=== PATIENT | female | born 1960 | race Caucasian/White ===

== ENCOUNTER 2021-10-08 12:42 | Emergency (ER) | payer MEDICAID, SELFPAY ==
[2021-10-08 13:11] VITALS: BP 117/87; PULSE 81; RESP 16; TEMP 36.3; O2SAT 92; BMI 32.6
--- NOTE | 2021-10-08 15:09 | CRLHL7_ITS ---
For Patients: As a result of the Cures Act, medical imaging exams and procedure reports are released immediately into your electronic medical record. You may view this report before your referring provider. If you have questions, please contact your health care provider. INDICATION: Knee pain. TECHNIQUE: Left knee 3 views. COMPARISON: None. FINDINGS: Bones: Alignment is normal. No fractures or bone lesions. Joint spaces: Mild degenerative changes in the form of osteophytes projecting from the tibial spine. Soft tissues: Unremarkable. IMPRESSION: No findings to explain pain. Dictated by Trevon Son MD @ 10/08/2021 4:28:56 PM (Electronically Signed)
[2021-10-08] MEDS: KETOROLAC 30 MG/ML inj IM (15:26)
[2021-10-08 15:42] LABS: Basophils Absolute Auto 0.03 K/uL (0.00-0.30); Basophils Percent Auto 0.5 % (0.0-3.0); Eosinophils Absolute Auto 0.22 K/uL (0.00-0.50); Eosinophils Percent Auto 3.3 % (0.0-7.0); Hemoglobin* 15.9 gm/dL (12.0-16.0); Immature Granulocytes Abs Auto 0.01 K/uL (0.00-0.30); Lymphocytes Absolute Auto 2.49 K/uL (0.90-2.90); Lymphocytes Percent Auto 37.6 % (20-44); Mean Corpuscular HGB Conc 33 gm/dL (32-36); Mean Corpuscular Hemoglobin 30 pg (26-34); Mean Corpuscular Volume 89 fL (80-100); Monocytes Percent Auto 5.3 % (0.0-11.0); Neutrophils Absolute Auto 3.53 K/uL (1.7-7.0); Neutrophils Percent Auto 53.1 % (42.0-72.0); Platelet Count* 282 K/uL (140-440); RDW Coefficient of Variation % 12.2 % (11.5-15.5); Red Blood Count 5.39 m/uL (4.00-5.20); White Blood Count* 6.63 K/uL (4.50-11.00)
[2021-10-08 15:43] LABS: Slide Review Reflex No
[2021-10-08 15:58] LABS: Chloride* 109 mmol/L (96-114); Sodium* 142 mmol/L (135-149)
[2021-10-08 16:01] LABS: Creatinine* 0.9 mg/dL (0.5-1.5); Est. Creatinine Clearance* 51.02; Estimated Glomerular Filt Rate 73 ml/min
[2021-10-08 16:02] LABS: Blood Urea Nitrogen* 21 mg/dL (7-30); Calcium* 9.5 mg/dL (8.4-10.6); Carbon Dioxide* 25 mmol/L (20-32); Glucose* 93 mg/dL (60-115)
--- NOTE | 2021-10-08 16:17 | ED_ITS ---
HPI - Extremity Injury (Lower) General Chief Complaint: Extremity Pain/Injury, Lower Stated Complaint: pain on left knees Time Seen by Provider: 10/08/21 14:58 History of Present Illness HPI Narrative: 61-year-old female patient presents emergency department with complaints of left knee pain. Patient reports in August, she [place] where [place] knocked her sideways causing immediate pain, swelling, and decreased range of motion. She reports she has conservative therapy with RICE with some improvement. Then, over the weekend she attended a wedding where she was dancing and had subsequent increase in pain. She denies new injury or trauma. She states since that time, she has had severe pain and burning. She denies numbness, tingling, or weakness. She reports after the wedding, she felt the knee may ?give way?. She has taken Tylenol in the a.m. for pain control with minimal improvement in symptoms. She continues with compression and ice with minimal assistance with discomfort. She requests MRI for further evaluation of her concern. She has not yet had x-ray or other evaluation of this concern. See nursing notes for additional details. Related Data Allergies Allergy/AdvReac Type Severity Reaction Status Date / Time doxycycline AdvReac Severe Burned Verified 10/08/21 15:29 Esophagus Review of Systems Const: Denies: fever or chills Cardio: Denies: chest pain, palpitations or shortness of breath with exertion Resp: Denies: shortness of breath GI: Denies: nausea or vomiting Musculo: Reports: joint pain, limited range of motion and joint swelling Neuro: Denies: numbness in extremities, weakness in extremities or lack of coordination Exam Const: Vital Signs, click to edit/add: Vital Signs - 24 hr 10/08/21 13:11 Temperature 97.3 F L Pulse Rate [Pulse Oximeter] 81 Respiratory Rate 16 Blood Pressure [Ri ght Upper Arm] 117/87 Pulse Oximetry 92 Oxygen Delivery Me thod Room Air Documenting provider has reviewed patient's vital signs: yes Common normals : no apparent distress, oriented x3, healthy appearing, alert and well nourished General appearance: not comfortable and not in distress Nutritional appearance: obese Orientation/consciousness: Yes awake, Yes oriented to person, Yes oriented to place and Yes oriented to time HENMT: Common normals: normocephalic and head/scalp atraumatic Head and scalp: normocephalic and atraumatic Resp: Common normals: normal respiratory effort, no retractions, no use of accessory muscles and clear to auscultation bilaterally Effort & inspection: able to speak in complete sentences Auscultation: clear to auscultation bilaterally Cardio: Common normals: regular rate, regular rhythm, S1 normal heart sound, S2 normal heart sound, no gallops, no clicks and no murmurs Rate: regular rate Rhythm: regular rhythm Heart sounds: S1 normal and S2 normal GI: Common normals: Normal to inspection, nondistended, normoactive bowel sounds present, soft to palpation and non-tender Palpation: soft Back & Pelvis: Pelvis: no pain with anterior-posterior compression and no pain with lateral compression Extremity: Common normals: no clubbing, cyanosis or edema Left lower extremity: knee joint Left knee: inspection (Slightly enlarged compared to right), palpation (Warm to palpation with tenderness noted medially and inferior), ROM (Limitation secondary to pain) and neurovascular exam (No motor or sensory deficits noted) Neuro: Common normals: oriented x3, moves all extremities, no focal motor deficits and no sensory deficits noted Sensorium/orientation: awake, alert, oriented to person, oriented to place and oriented to time Psych: Common normals: mental status grossly normal, thought process normal, cooperative and affect normal Thought process: normal thought process Skin: Common normals: no rashes or lesions noted General skin exam: no rashes or lesions noted Course Course Hospital Course: Jie presented for knee pain. She was sent for imaging as well as laboratory studies for evaluation her discomfort. We discussed acute MRI was inappropriate for knee pain at present, but would definitely consider outpatient follow-up with pre authorization for further evaluation of discomfort it persists. The patient was given anti-inflammatories to assist with pain and discomfort. Vital Signs Vital signs: Initial Vital Signs Temperature 97.3 F L 10/08/21 13:11 Temperature Source Temporal Artery Scan 10/08/21 13:11 Pulse Rate 81 10/08/21 13:11 Pulse Rhythm 10/08/21 13:11 Respiratory Rate 16 10/08/21 13:11 Blood Pressure 117/87 10/08/21 13:11 Blood Pressure Mean 97 10/08/21 13:11 Pulse Oximetry 92 10/08/21 13:11 Oxygen Delivery Method 10/08/21 13:11 Vital Signs Temperature 97.3 F L 10/08/21 13:11 Pulse Rate 81 10/08/21 13:11 Respiratory Rate 16 10/08/21 13:11 Blood Pressure 117/87 10/08/21 13:11 Pulse Oximetry 92 10/08/21 13:11 Oxygen Delivery Method 10/08/21 13:11 Temperature 97.3 F L 10/08/21 13:11 Pulse Rate 81 10/08/21 13:11 Respiratory Rate 16 10/08/21 13:11 Blood Pressure 117/87 10/08/21 13:11 Pulse Oximetry 92 10/08/21 13:11 Oxygen Delivery Method 10/08/21 13:11 MDM - Extremity Injury (Lower) Lab Data Attestation: I reviewed the patient's lab results. Labs: Lab Results 10/08/21 10/08/21 10/08/21 Range/Units 15:25 15:25 15:25 WBC 6.63 (4.50-11.00) K/uL RBC 5.39 H (4.00-5.20) m/uL Hgb 15.9 (12.0-16.0) gm/dL Hct 48.0 (33.0-51.0) % MCV 89 (80-100) fL MCH 30 (26-34) pg MCHC 33 (32-36) gm/dL RDW Coeff of Rick 12.2 (11.5-15.5) % Plt Count 282 (140-440) K/uL Neut % (Auto) 53.1 (42.0-72.0) % Lymph % (Auto) 37.6 (20-44) % [place] % (Auto) 5.3 (0.0-11.0) % Eos % (Auto) 3.3 (0.0-7.0) % Baso % (Auto) 0.5 (0.0-3.0) % Neut # (Auto) 3.53 (1.7-7.0) K/uL Lymph # (Auto) 2.49 (0.90-2.90) K/uL [place] # (Auto) 0.40 (0.00-0.90) K/UL Eos # (Auto) 0.22 (0.00-0.50) K/uL Baso # (Auto) 0.03 (0.00-0.30) K/uL Abs Immat Gran (auto) 0.01 (0.00-0.30) K/uL Sodium 142 (135-149) mmol/L Potassium 4.0 (3.6-5.1) mmol/L Chloride 109 (96-114) mmol/L Carbon Dioxide 25 (20-32) mmol/L BUN 21 (7-30) mg/dL Creatinine 0.9 (0.5-1.5) mg/dL Estimated Creat Clear 51.02 Estimated GFR 73 ml/min Glucose 93 (60-115) mg/dL Calcium 9.5 (8.4-10.6) mg/dL C-Reactive Protein < 0.5 L (0.5-1.0) mg/dL C-React Prot High Sens Cancelled Imaging Data XR knee: Attestation: I have reviewed the pertinent imaging results. Radiologist's impression: FINDINGS: Bones: Alignment is normal. No fractures or bone lesions.? Joint spaces: Mild degenerative changes in the form of osteophytes projecting from the tibial spine. Soft tissues: Unremarkable.? IMPRESSION: No findings to explain pain. Discharge Plan Discharge Clinical Impression: Acute knee pain Patient Disposition: Home, Self-Care Condition: Stable Instructions: Knee Pain (ED) Additional Instructions: Thank you for choosing [facility] for your care today. Take NSAID of choice - Advil, Aleve, Motrin, or substitute - scheduled per package directions with food for 72hrs. Take Tylenol per package direction to assist with control of pain. Use RICE - rest, ice, compression, and elevation - as needed for symptom control. I recommend following up with your primary physician in 1-2wks for consideration of additional imaging if a significant improvement of symptoms is not noted. Refrain from routine activity as tolerated. You may consider topical medications including capsaicin or lidocaine patches to assist with symptom control. If new or worsening symptoms develop or you have any concerns in the meantime, please call your primary care clinic or return to the ER for re-evaluation. Activity Level: Activity as Tolerated and Weight Bearing as Tolerated Discharge Diet: Heart Healthy (2 gm sodium, low fat) Follow Up/Referrals: Provider,Not a Local [Primary Care Provider] - Stand Alone Forms: [employer] Info Instructions
[2021-10-08 16:25] LABS: C Reactive Protein* < 0.5 mg/dL (0.5-1.0)
== END 2021-10-08 18:07 | disposition home or self-care (01) ==
PROVIDERS: Emergency Provider Family Medicine
DX: M25.562 Pain in left knee (principal)
CPT/HCPCS: 36415; 73562; 80048; 85025; 86140; 86141; 96372; 99283; J1885

== ENCOUNTER 2023-11-22 22:37 | Emergency (ER) | payer OTHER, SELFPAY ==
[2023-11-22 22:48] VITALS: BP 148/136; PULSE 106; TEMP 37.3; O2SAT 94; BMI 32.6
--- NOTE | 2023-11-22 23:08 | ED.GENADULT ---
HPI - General Adult General Date Seen: 11/22/23 <Halina Mendenhall MD - Last Filed: 11/25/23 09:28> Chief complaint: Shortness of Breath/Dyspnea <Halina Mendenhlal MD - Last Filed: 11/25/23 09:28> Stated complaint: difficulty breathing <Halina Mendenhall MD - Last Filed: 11/25/23 09:28> Time Seen by Provider: 11/22/23 22:54 <Halina Mendenhall MD - Last Filed: 11/25/23 09:28> Source: patient, RN notes reviewed and old records reviewed <Halina Mendenhall MD - Last Filed: 11/25/23 09:28> Mode of arrival: ambulatory <Halina Mendenhall MD - Last Filed: 11/25/23 09:28> Limitations: no limitations <Halina Mendenhall MD - Last Filed: 11/25/23 09:28> History of Present Illness HPI narrative: Patient is a 63-year-old woman who comes in saying that she has been having problems for a while with difficulty breathing, is being treated for asthma and allergies at [facility]. She has an albuterol inhaler, the past couple of days she has been feeling more short of breath than used her inhaler 8 times today at work. She works as a [employer]. She does have new pain between her shoulder blades tonight. She denies fever, cough, unusual leg pain or swelling. She says she has been having trouble since last January with sinus issues, and they have been finding just more and more going on, diagnosed with asthma and allergies, started on inhalers, she was diagnosed with polycythemia vera as well. She was living with her daughter who had a cat, it turns out that she is allergic to cats so she is no longer around the cat but it does not seem to help significantly. No personal history or family history of DVT or PE. She does not take oral contraceptives. She has had problems with reflux symptoms and those are unchanged. She does not smoke. <Halina Mendenhall MD - Last Filed: 11/25/23 09:28> Related Data Home medications: Home Medications ?Medication ?Instructions ?Recorded ?Confirmed albuterol sulfate 90 mcg/actuation 1 - 2 puff inhalation QID PRN 11/22/23 11/22/23 aerosol inhaler (Ventolin HFA) wheezing mometasone-formoterol HFA 200 2 puff inhalation BID 11/22/23 11/22/23 mcg-5 mcg/actuation aerosol inhaler (Dulera) <Halina Mendenhall MD - Last Filed: 11/25/23 09:28> Allergies/adverse reactions: Allergies Allergy/AdvReac Type Severity Reaction Status Date / Time doxycycline AdvReac Severe Burned Verified 11/22/23 22:46 Esophagus <Halina Mendenhall MD - Last Filed: 11/25/23 09:28> Review of Systems Status of ROS: Reports: 10 or more systems reviewed and unremarkable except as noted in History and below <Halina Mendenhall MD - Last Filed: 11/25/23 09:28> [facility] Social History: Social History Smoking Status: Former smoker Do you use any of these nicotine containing products: None Second hand tobacco smoke exposure: Yes How often do you have a drink containing alcohol: never How often do you have six or more drinks on one occasion: Never AUDIT-C Alcohol total score: 0 Non-prescribed substance use: denies use and marijuana (any form) service: No <Halina Mendenhall MD - Last Filed: 11/25/23 09:28> Exam Narrative: Exam Narrative: Vital signs as noted above. In general, an alert, nontoxic woman. Speaks in full sentences. Head: Normocephalic, atraumatic. Eyes: Pupils are equal reactive. Extraocular movements are full. Conjunctivae are normal. ENT: Mucous membranes are moist. Throat is normal. Neck: Supple without lymphadenopathy. Heart: Mildly tachycardic and regular, no murmur. Lungs: Scattered bilateral expiratory wheezes. Breath sounds seem a little decreased on the left relative to the right. No crackles. Abdomen: Soft and nontender. No organomegaly. Extremities: Well perfused. No edema. No calf tenderness. Pulses intact. Neurologic: Patient is alert and oriented to person and place. Speech is fluent. Face is symmetric. Moves all extremities equally. Affect: Normal. Skin: Warm and dry. Well perfused. <Halina Mendenhall MD - Last Filed: 11/25/23 09:28> Const: Vital Signs, click to edit/add: Vital Signs - 24 hr 11/22/23 22:48 11/22/23 23:32 11/23/23 00:59 Temperature 99.1 F 98.6 F Pulse Rate [Pulse Oximeter] 106 H Respiratory Rate Blood Pressure [Ri ght Upper Arm] 148/136 H Pulse Oximetry 94 100 Oxygen Delivery Me thod Room Air 11/23/23 01:20 Temperature Pulse Rate [Pulse Oximeter] 86 Respiratory Rate 18 Blood Pressure [Ri ght Upper Arm] 130/70 Pulse Oximetry 96 Oxygen Delivery Me thod Room Air <Halina Mendenhall MD - Last Filed: 11/25/23 09:28> Vital Signs, click to edit/add: Vital Signs - 24 hr 11/22/23 22:48 11/22/23 23:32 11/23/23 00:59 Temperature 99.1 F 98.6 F Pulse Rate [Pulse Oximeter] 106 H Respiratory Rate Blood Pressure [Ri ght Upper Arm] 148/136 H Pulse Oximetry 94 100 Oxygen Delivery Me thod Room Air 11/23/23 01:20 Temperature Pulse Rate [Pulse Oximeter] 86 Respiratory Rate 18 Blood Pressure [Ri ght Upper Arm] 130/70 Pulse Oximetry 96 Oxygen Delivery Me thod Room Air <Yusuf Dent DO - Last Filed: 11/23/23 01:34> Documenting provider has reviewed patient's vital signs: yes <Halina Mendenhall MD - Last Filed: 11/25/23 09:28> Course Course ED Course: Patient presents with an exacerbation of difficulty breathing in the setting of recently diagnosed asthma. Other diagnostic considerations would be congestive heart failure, pulmonary embolism, pneumonia, pneumothorax among others. She completed a course of prednisone a week ago and did feel better on the prednisone. She clearly has evidence of bronchospasm here, has new periscapular pain. She is mildly tachycardic, O2 sats 94%. Will obtain a D-dimer, if positive would recommend chest CT if negative I think a chest x-ray would suffice. I am going to give her prednisone as well as a DuoNeb and trying get her wheezing under better control for her. Other lab work pending. EKG showed a sinus rhythm, ventricular rate of 97 beats per minute. No ST segment changes, no S1 Q 3 T3 pattern. Unremarkable T-waves. D-dimer is negative. Other blood work unremarkable. She feels significantly better after DuoNeb, does still have a little bit of scattered wheezing. I am signing her out to the oncoming physician, observe for little bit make sure she continues to improve, if she needs additional neb treatment here this can be done as well. Discharge home on prednisone with primary care follow-up if not improving over the next couple of days. Return any time for acute worsening. <Halina Mendenhall MD - Last Filed: 11/25/23 09:28> Vital Signs Vital signs: Initial Vital Signs Temperature 99.1 F 11/22/23 22:48 Temperature Source Temporal Artery Scan 11/22/23 22:48 Pulse Rate 106 H 11/22/23 22:48 Blood Pressure 148/136 H 11/22/23 22:48 Blood Pressure Mean 140 H 11/22/23 22:48 Blood Pressure Position Sitting 11/22/23 22:48 Pulse Oximetry 94 11/22/23 22:48 Oxygen Delivery Method Room Air 11/22/23 22:48 Vital Signs Temperature 99.1 F 11/22/23 22:48 Pulse Rate 106 H 11/22/23 22:48 Blood Pressure 148/136 H 11/22/23 22:48 Pulse Oximetry 94 11/22/23 22:48 Oxygen Delivery Method Room Air 11/22/23 22:48 Temperature 98.6 F 11/23/23 00:59 Pulse Rate 86 11/23/23 01:20 Respiratory Rate 18 11/23/23 01:20 Blood Pressure 130/70 11/23/23 01:20 Pulse Oximetry 96 11/23/23 01:20 Oxygen Delivery Method Room Air 11/23/23 01:20 <Halina Mendenhall MD - Last Filed: 11/25/23 09:28> Initial Vital Signs Temperature 99.1 F 11/22/23 22:48 Temperature Source Temporal Artery Scan 11/22/23 22:48 Pulse Rate 106 H 11/22/23 22:48 Blood Pressure 148/136 H 11/22/23 22:48 Blood Pressure Mean 140 H 11/22/23 22:48 Blood Pressure Position Sitting 11/22/23 22:48 Pulse Oximetry 94 11/22/23 22:48 Oxygen Delivery Method Room Air 11/22/23 22:48 Vital Signs Temperature 99.1 F 11/22/23 22:48 Pulse Rate 106 H 11/22/23 22:48 Blood Pressure 148/136 H 11/22/23 22:48 Pulse Oximetry 94 11/22/23 22:48 Oxygen Delivery Method Room Air 11/22/23 22:48 Temperature 98.6 F 11/23/23 00:59 Pulse Rate 86 11/23/23 01:20 Respiratory Rate 18 11/23/23 01:20 Blood Pressure 130/70 11/23/23 01:20 Pulse Oximetry 96 11/23/23 01:20 Oxygen Delivery Method Room Air 11/23/23 01:20 <Yusuf Dent DO - Last Filed: 11/23/23 01:34> Medications Administered Medications: Discontinued Medications Generic Name Dose Route Start Last Admin Trade Name Freq PRN Reason Stop Dose Admin Albuterol/Ipratropium 1 [facility] 11/22/23 23:06 11/22/23 23:30 Iprat-Albut 0.5-2.5 Mg/3 Ml [facility] 11/22/23 23:07 1 neb ONCE ONE Administration Prednisone 60 mg 11/22/23 23:06 11/22/23 23:31 Prednisone 20 Mg Tablet PO 11/22/23 23:07 60 mg ONCE ONE Administration <Halina Mendenhall MD - Last Filed: 11/25/23 09:28> Discontinued Medications Generic Name Dose Route Start Last Admin Trade Name Freq PRN Reason Stop Dose Admin Albuterol/Ipratropium 1 [facility] 11/22/23 23:06 11/22/23 23:30 Iprat-Albut 0.5-2.5 Mg/3 Ml [facility] 11/22/23 23:07 1 neb ONCE ONE Administration Prednisone 60 mg 11/22/23 23:06 11/22/23 23:31 Prednisone 20 Mg Tablet PO 11/22/23 23:07 60 mg ONCE ONE Administration <Yusuf Dent DO - Last Filed: 11/23/23 01:34> Medical Decision Making MDM Narrative Medical decision making narrative: Patient signed out to me pending chest x-ray. I reviewed the chest x-ray myself and see no abnormalities. There has been a delay of the radiologist imaging reads and patient would like to be discharged. Considering she is doing well and lungs sound clear I am comfortable discharging her and will inform if any abnormalities are seen by the radiologist. <Yusuf Dent, DO - Last Filed: 11/23/23 01:34> Lab Data Labs: Lab Results 11/22/23 Range/Units 23:25 WBC 8.54 (4.50-11.00) K/uL RBC 4.81 (4.00-5.20) m/uL Hgb 14.5 (12.0-16.0) gm/dL Hct 43.6 (33.0-51.0) % MCV 91 (80-100) fL MCH 30 (26-34) pg MCHC 33 (32-36) gm/dL RDW Coeff of Rick 12.3 (11.5-15.5) % Plt Count 263 (140-440) K/uL Neut % (Auto) 55.7 (42.0-72.0) % Lymph % (Auto) 32.6 (20-44) % [place] % (Auto) 4.7 (0.0-11.0) % Eos % (Auto) 5.7 (0.0-7.0) % Baso % (Auto) 0.5 (0.0-3.0) % Neut # (Auto) 4.76 (1.7-7.0) K/uL Lymph # (Auto) 2.78 (0.90-2.90) K/uL [place] # (Auto) 0.40 (0.00-0.90) K/UL Eos # (Auto) 0.49 (0.00-0.50) K/uL Baso # (Auto) 0.04 (0.00-0.30) K/uL Abs Immat Gran (auto) 0.07 (0.00-0.30) K/uL Imm/Tot Granulo (auto) 0.8 % D-Dimer Quant (PE/DVT) 0.48 (0.00-0.50) ug/ml VBG pH 7.394 (7.32-7.43) VBG pCO2 38 L (40-50) mmHG VBG pO2 38.3 (25-47) mmHG VBG HCO3 23 (21-28) mmol/L Sodium 142 (135-149) mmol/L Potassium 3.6 (3.6-5.1) mmol/L Chloride 110 (96-114) mmol/L Carbon Dioxide 21 (20-32) mmol/L Anion Gap 11 (7-15) mEq/L BUN 17 (7-30) mg/dL Creatinine 1.0 (0.5-1.5) mg/dL Estimated Creat Clear 49.72 Estimated GFR 63 ml/min Glucose 118 H (60-115) mg/dL Calcium 9.7 (8.4-10.6) mg/dL NT-Pro-B Natriuret Pep 95 pg/mL SARS-CoV-2 (PCR) Negative SARS-CoV-2 (Negative) Influenza Type A (PCR) Negative PCR FLU A (Negative) Influenza Type B (PCR) Negative PCR FLU B (Negative) RSV (PCR) Negative PCR RSV (Negative) <Halina Mendenhall MD - Last Filed: 11/25/23 09:28> Lab Results 11/22/23 Range/Units 23:25 WBC 8.54 (4.50-11.00) K/uL RBC 4.81 (4.00-5.20) m/uL Hgb 14.5 (12.0-16.0) gm/dL Hct 43.6 (33.0-51.0) % MCV 91 (80-100) fL MCH 30 (26-34) pg MCHC 33 (32-36) gm/dL RDW Coeff of Rick 12.3 (11.5-15.5) % Plt Count 263 (140-440) K/uL Neut % (Auto) 55.7 (42.0-72.0) % Lymph % (Auto) 32.6 (20-44) % [place] % (Auto) 4.7 (0.0-11.0) % Eos % (Auto) 5.7 (0.0-7.0) % Baso % (Auto) 0.5 (0.0-3.0) % Neut # (Auto) 4.76 (1.7-7.0) K/uL Lymph # (Auto) 2.78 (0.90-2.90) K/uL [place] # (Auto) 0.40 (0.00-0.90) K/UL Eos # (Auto) 0.49 (0.00-0.50) K/uL Baso # (Auto) 0.04 (0.00-0.30) K/uL Abs Immat Gran (auto) 0.07 (0.00-0.30) K/uL Imm/Tot Granulo (auto) 0.8 % D-Dimer Quant (PE/DVT) 0.48 (0.00-0.50) ug/ml VBG pH 7.394 (7.32-7.43) VBG pCO2 38 L (40-50) mmHG VBG pO2 38.3 (25-47) mmHG VBG HCO3 23 (21-28) mmol/L Sodium 142 (135-149) mmol/L Potassium 3.6 (3.6-5.1) mmol/L Chloride 110 (96-114) mmol/L Carbon Dioxide 21 (20-32) mmol/L Anion Gap 11 (7-15) mEq/L BUN 17 (7-30) mg/dL Creatinine 1.0 (0.5-1.5) mg/dL Estimated Creat Clear 49.72 Estimated GFR 63 ml/min Glucose 118 H (60-115) mg/dL Calcium 9.7 (8.4-10.6) mg/dL NT-Pro-B Natriuret Pep 95 pg/mL SARS-CoV-2 (PCR) Negative SARS-CoV-2 (Negative) Influenza Type A (PCR) Negative PCR FLU A (Negative) Influenza Type B (PCR) Negative PCR FLU B (Negative) RSV (PCR) Negative PCR RSV (Negative) <Yusuf Dent DO - Last Filed: 11/23/23 01:34> Discharge Plan Discharge Clinical Impression: Asthma with acute exacerbation <Halina Mendenhall MD - Last Filed: 11/25/23 09:28> Patient Disposition: Home, Self-Care <Halina Mendenhall MD - Last Filed: 11/25/23 09:28> Condition: Improved <Halina Mendenhall MD - Last Filed: 11/25/23 09:28> Instructions: Asthma (DC) <Halina Mendenhall MD - Last Filed: 11/25/23 09:28> Additional Instructions: Prednisone taper as prescribed. Please check in with your doctors at [facility] next week. Return any time for severe shortness of breath or new symptoms such as high fever, chest pain, etcetera. Prednisone: 3 tablets daily for 3 days, then 2 tablets daily for 3 days, then 1 tablet daily for 3 days. <Halina Mendenhall MD - Last Filed: 11/25/23 09:28> Prescriptions: No Action albuterol sulfate [Ventolin HFA] 90 mcg/actuation HFA aerosol inhaler 1 - 2 puff INHALATION QID PRN (Reason: wheezing) Dulera 200-5 mcg/actuation HFA aerosol inhaler 2 puff INHALATION BID <Halina Mendenhall MD - Last Filed: 11/25/23 09:28> Follow Up/Referrals: Provider,Not a Local [Primary Care Provider] - <Halina Mendenhall MD - Last Filed: 11/25/23 09:28> Stand Alone Forms: [employer] Info Instructions <Halina Mendenhall MD - Last Filed: 11/25/23 09:28>
[2023-11-22] MEDS: IPRAT-ALBUT 0.5-2.5 MG/3 ML NEB 1 NEB IH (23:30)
[2023-11-22 23:31] LABS: HCO3 VBG 23 mmol/L (21-28); PCO2 VBG 38 mmHG (40-50); PO2 VBG 38.3 mmHG (25-47); pH VBG 7.394 (7.32-7.43)
[2023-11-22] MEDS: predniSONE 20 MG TABLET 60 MG PO (23:31)
[2023-11-22 23:32] VITALS: O2SAT 100
[2023-11-22 23:38] LABS: Basophils Absolute Auto 0.04 K/uL (0.00-0.30); Basophils Percent Auto 0.5 % (0.0-3.0); Eosinophils Absolute Auto 0.49 K/uL (0.00-0.50); Eosinophils Percent Auto 5.7 % (0.0-7.0); Hematocrit 43.6 % (33.0-51.0); Hemoglobin* 14.5 gm/dL (12.0-16.0); Immature Granulocytes Abs Auto 0.07 K/uL (0.00-0.30); Immature Granulocytes Pct Auto 0.8 %; Lymphocytes Absolute Auto 2.78 K/uL (0.90-2.90); Lymphocytes Percent Auto 32.6 % (20-44); Mean Corpuscular HGB Conc 33 gm/dL (32-36); Mean Corpuscular Hemoglobin 30 pg (26-34); Mean Corpuscular Volume 91 fL (80-100); Monocytes Percent Auto 4.7 % (0.0-11.0); Neutrophils Absolute Auto 4.76 K/uL (1.7-7.0); Neutrophils Percent Auto 55.7 % (42.0-72.0); Platelet Count* 263 K/uL (140-440); RDW Coefficient of Variation % 12.3 % (11.5-15.5); Red Blood Count 4.81 m/uL (4.00-5.20); White Blood Count* 8.54 K/uL (4.50-11.00)
[2023-11-22 23:40] LABS: Slide Review Reflex No
[2023-11-22 23:47] LABS: Chloride* 110 mmol/L (96-114); Potassium* 3.6 mmol/L (3.6-5.1); Sodium* 142 mmol/L (135-149)
[2023-11-22 23:50] LABS: Anion Gap 11 mEq/L (7-15); Blood Urea Nitrogen* 17 mg/dL (7-30); Carbon Dioxide* 21 mmol/L (20-32); D Dimer Quantitative* 0.48 ug/ml (0.00-0.50); Est. Creatinine Clearance* 49.72; Estimated Glomerular Filt Rate 63 ml/min
[2023-11-22 23:51] LABS: Calcium* 9.7 mg/dL (8.4-10.6); Glucose* 118 mg/dL (60-115)
[2023-11-23] LABS: NT Pro B Type NatriureticPept* 95 pg/mL
--- NOTE | 2023-11-23 00:03 | CRLHL7_ITS ---
For Patients: As a result of the Cures Act, medical imaging exams and procedure reports are released immediately into your electronic medical record. You may view this report before your referring provider. If you have questions, please contact your health care provider. Indication: Cough, shortness of breath Technique: Two views of the chest Comparison: None Findings/Impression: No acute cardiopulmonary process detected. Dictated by Deven Lauren MD @ 11/23/2023 1:59:36 AM (Electronically Signed)
[2023-11-23 00:10] LABS: PCR FLU A Negative PCR FLU A (Negative); PCR FLU B Negative PCR FLU B (Negative); PCR RSV Negative PCR RSV (Negative); SARS PCR* Negative SARS-CoV-2 (Negative)
[2023-11-23 00:59] VITALS: TEMP 37
[2023-11-23 01:20] VITALS: BP 130/70; PULSE 86; RESP 18; O2SAT 96
== END 2023-11-23 01:41 | disposition home or self-care (01) ==
PROVIDERS: Emergency Provider Emergency Medicine
DX: J45.901 Unspecified asthma with (acute) exacerbation (principal)
CPT/HCPCS: 36415; 71046; 80048; 82803; 83880; 84484; 85025; 85379; 87631; 93005; 94761; 99283; 99284; 99285; J7512